=== PATIENT | female | born 1995 | race African-American/Black ===

== ENCOUNTER 2019-12-09 10:53 | Emergency (ER) | payer MEDICAID ==
[~2019-12-09] VITALS: Ht 152.4 cm; Wt 55.8 kg
[2019-12-09 11:04] VITALS: BP 105/75; Ht 152.4 cm; Wt 55.8 kg
== END 2019-12-09 12:30 | disposition home or self-care (01) ==
LOC: ED 10:53
DX: O23.41 Unspecified infection of urinary tract in pregnancy, first trimester (principal); Z3A.08 8 weeks gestation of pregnancy; J45.909 Unspecified asthma, uncomplicated; Z88.1 Allergy status to other antibiotic agents